=== PATIENT | female | born 1980 | race Caucasian/White ===

== ENCOUNTER 2016-08-27 01:42 | Emergency (ER) | payer SELFPAY ==
[~2016-08-27] VITALS: Ht 175.3 cm; Wt 77.1 kg
[2016-08-27 02:01] VITALS: BP 123/84
== END 2016-08-27 02:42 | disposition left against medical advice (07) ==
LOC: ER 01:44
DX: Z53.21 Procedure and treatment not carried out due to patient leaving prior to being seen by health care provider (principal)
CPT/HCPCS: A4606; Z7610

== ENCOUNTER 2016-10-06 11:02 | Emergency (ER) | payer SELFPAY ==
[~2016-10-06] VITALS: Ht 175.3 cm; Wt 79.4 kg
[2016-10-06 12:28] VITALS: BP 133/80
[2016-10-06] MEDS ORDERED: TDAP [DIPH/PERTUSSIS/TET] 0.5 ML VIAL IM ONE ×2 (13:10→13:30)
== END 2016-10-06 13:17 | disposition home or self-care (01) ==
LOC: ER 11:04
DX: L03.032 Cellulitis of left toe (principal); F17.200 Nicotine dependence, unspecified, uncomplicated
CPT/HCPCS: 90715; A4606; A6403; Z7610

== ENCOUNTER 2016-11-04 18:17 | Emergency (ER) | payer SELFPAY ==
[~2016-11-04] VITALS: Ht 172.7 cm; Wt 74.8 kg
[2016-11-04 18:36] VITALS: BP 145/90
== END 2016-11-04 18:57 | disposition home or self-care (01) ==
LOC: ER 18:21
DX: B35.1 Tinea unguium (principal); M79.674 Pain in right toe(s); I10 Essential (primary) hypertension; F17.200 Nicotine dependence, unspecified, uncomplicated; Z71.6 Tobacco abuse counseling
CPT/HCPCS: 99283; A4606; Z7610

== ENCOUNTER 2017-01-10 21:09 | Emergency (ER) | payer SELFPAY ==
--- NOTE | 2017-01-10 23:00 | NUR ---
CALLED FOR PT IN [facility]. NO RESPONSE.
--- NOTE | 2017-01-10 23:47 | NUR ---
CALLED FOR PT IN [facility]. NO RESPONSE. INFORMED BY ADMITTING STAFF THAT PT DECIDED SHE NO LONGER WISHED TO SEEK TREATMENT AND LEFT.
== END 2017-01-10 23:48 | disposition left against medical advice (07) ==
LOC: ER 21:09
DX: Z53.21 Procedure and treatment not carried out due to patient leaving prior to being seen by health care provider (principal)

== ENCOUNTER 2017-01-18 17:35 | Emergency (ER) | payer SELFPAY ==
[~2017-01-18] VITALS: Ht 175.3 cm; Wt 81.6 kg
[2017-01-18 17:39] VITALS: BP 162/97
== END 2017-01-18 19:13 | disposition home or self-care (01) ==
LOC: ER 17:39
DX: M54.2 Cervicalgia (principal); L08.9 Local infection of the skin and subcutaneous tissue, unspecified; F17.200 Nicotine dependence, unspecified, uncomplicated
CPT/HCPCS: 70360; 99284; A4606; Z7610